=== PATIENT | female | born 2000 | race African-American/Black ===

== ENCOUNTER 2023-06-08 14:24 | Emergency (ER) | payer SELFPAY ==
[~2023-06-08] VITALS: Ht 154.9 cm; Wt 64.2 kg
[2023-06-08] MEDS ORDERED: AMOX875T2 PO (16:48)
[2023-06-08] MEDS ORDERED: KETO10TAB PO (16:48)
[2023-06-08] MEDS ORDERED: LIDO15SO8 PO (16:50)
[2023-06-08] MEDS: AUGMENTIN 875 MG TAB PO ONE (16:56)
[2023-06-08] MEDS: KETOROLAC TROMETHAMINE 10 MG TAB PO ONE (16:56)
[2023-06-08 17:02] VITALS: BP 120/82; TEMP 97.5; O2SAT 100
== END 2023-06-08 17:22 | disposition home or self-care (01) ==
LOC: M ED 14:24
DX: K04.7 Periapical abscess without sinus (principal); F17.200 Nicotine dependence, unspecified, uncomplicated; F12.10 Cannabis abuse, uncomplicated; F10.10 Alcohol abuse, uncomplicated; Z79.2 Long term (current) use of antibiotics; Z79.899 Other long term (current) drug therapy

== ENCOUNTER → 2024-03-27 | Outpatient (REF) ==
[~2024-03-27] MED LIST: AMOX875T2 PO; KETO10TAB PO; LIDO15SO8 PO
[2024-03-30 13:27] LABS: HERPES ZOSTER, VARICELLA IgG < 1.00 S/CO (>=1.00)
== END ==
LOC: M LAB 10:39
PROVIDERS: ATTEND Family Medicine
DX: Z01.89 Encounter for other specified special examinations (principal)

== ENCOUNTER 2024-03-29 05:41 | Emergency (ER) | payer OTHER ==
[~2024-03-29] VITALS: Ht 154.9 cm; Wt 75.4 kg
[2024-03-29] MEDS: KETOROLAC 60MG 2ML VIAL IM ONE (06:31)
[2024-03-29] MEDS: BENZOCAINE 20% GEL 9GM TUBE (ANBESOL MAX STRENGTH) TOP PRN (06:31)
[2024-03-29] MEDS ORDERED: KETO10TAB PO (06:55)
[2024-03-29] MEDS ORDERED: AMOX875T2 PO (06:57)
[2024-03-29 07:03] VITALS: BP 119/71; TEMP 98; O2SAT 100
== END 2024-03-29 07:09 | disposition home or self-care (01) ==
LOC: M ED 05:41
DX: K02.9 Dental caries, unspecified (principal); Z79.2 Long term (current) use of antibiotics
CPT/HCPCS: 96372; 99283; J1885

== ENCOUNTER → 2024-09-09 | Outpatient (REF) | payer OTHER ==
[2024-09-09 20:13] LABS: APPEARANCE, URINE HAZY (CLEAR); BACTERIA, URINE AUTO NEGATIVE (NEGATIVE); BILIRUBIN, URINE AUTO NEGATIVE (NEGATIVE); BLOOD, URINE BLOOD NEGATIVE (NEGATIVE); GLUCOSE, URINE (UA) AUTO NEGATIVE (NEGATIVE); KETONE, URINE AUTO NEGATIVE (NEGATIVE); LEUKOCYTE ESTERASE, URINE AUTO NEGATIVE (NEGATIVE); MUCUS, URINE SMALL (NEGATIVE); NITRITE, URINE AUTO NEGATIVE (NEGATIVE); PROTEIN, URINE AUTO NEGATIVE (NEGATIVE); RBC, URINE AUTO 0 /HPF (0-3); SPECIFIC GRAVITY URINE AUTO 1.017 (1.002-1.035); SQUAMOUS EPITHELIAL CELL UR AU 12 /HPF (0-6); UROBILINOGEN, URINE AUTO 0.2 mg/dL (0.0-2.0); WBC, URINE AUTO 1 /HPF (0-3)
[2024-09-09 21:35] LABS: Trichomonas vaginalis (AMP) NOT DETECTED (NEGATIVE)
[2024-09-09 21:58] LABS: GC DNA AMPLIFICATION NEGATIVE (NEGATIVE)
== END ==
LOC: M LAB REF 17:39
PROVIDERS: ATTEND Physician Assistant
DX: N39.0 Urinary tract infection, site not specified (principal); Z20.2 Contact with and (suspected) exposure to infections with a predominantly sexual mode of transmission